=== PATIENT | male | born 2000 | race Caucasian/White ===

== ENCOUNTER 2023-08-06 16:02 | Outpatient (CLI) | payer BC, SELFPAY | END 2023-08-06 16:03 | disposition home or self-care (01) | LOC: LKVREF 16:03 | PROVIDERS: PCP Family Medicine; Visit Provider Nurse Practitioner Family | DX: M25.571 Pain in right ankle and joints of right foot (principal) | CPT/HCPCS: 84550 ==

== ENCOUNTER 2023-11-19 13:44 | Outpatient (CLI) | payer BC, SELFPAY | END 2023-11-19 13:45 | disposition home or self-care (01) | PROVIDERS: PCP Family Medicine; Visit Provider Family Medicine | DX: Z13.220 Encounter for screening for lipoid disorders (principal); Z13.228 Encounter for screening for other metabolic disorders | CPT/HCPCS: 80048; 80061 ==

== ENCOUNTER 2024-10-20 12:31 | Outpatient (CLI) | payer BC, SELFPAY | END 2024-10-20 12:32 | disposition home or self-care (01) | PROVIDERS: PCP Family Medicine; Visit Provider Family Medicine | DX: M10.9 Gout, unspecified (principal); E66.01 Morbid (severe) obesity due to excess calories; Z13.6 Encounter for screening for cardiovascular disorders | CPT/HCPCS: 80048; 80061; 84550 ==